=== PATIENT | female | born 1955 | race Caucasian/White ===

== ENCOUNTER 2023-04-11 07:33 | Emergency (ER) | payer OTHER ==
--- OUTSIDE RECORDS SUMMARY | 2023-04-11 07:36 | XMS REPORT | Continuity of Care Document ---
:1955 Author Organization [facility] t Address [address] [place] [address] [place] [id number] Care Team Providers Name Role Phone Jonathan Armijo MD Primary Care Physician Unavailable Uday Armijo V Attending Clinician Unavailable FOG_A_Provider Attending Clinician Unavailable Arya Macedo Attending Clinician [phone] Uday Armijo MD Attending Clinician RADIOLOGY Attending Clinician Unavailable Radiology Attending Clinician Unavailable JUANITO PETERSEN Attending Clinician Unavailable Therapy, Adc Covid Infusion Attending Clinician Unavailable Juanito Petersen MD Attending Clinician Doctor Unassigned, [place] Attending Clinician Unavailable Uday Armijo V Admitting Clinician Unavailable FOG_A_Provider Admitting Clinician Unavailable BETO WONG Admitting Clinician Unavailable Payers Payer Name Policy Type Policy Number Effective Date Expiration Date S yu [employer]ET[employer] (MEDICARE [id number] 2020 REPLACEMENT PPO) 00:00:00 [employer] MEDICARE OUT [id number] 2020 OF NETWORK 00:00:00 Problems Condition Condition Condition Status Onset Resolution Last Treating Co mments Source Name Details Category Date Date Treatment Clinician Date Localized, Localized, Problem Active A zalea 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 00:00: di c itis of itis of 00 Sports the ankle the Ankle Medi kaity and/or And/or e foot Foot Allergies, Adverse Reactions, Alerts Allergy Allergy Status Severity Reaction(s) Onset Inactive Treating Comm ents Source Name Type Date Date Clinician PENICILL DRUG Active Rash 2020-07 Univers IN INGREDI 08-01 ity of 00:00: [place] 00 [facility] Penicill Propensi Active Rash 2020-07 Univer s in ty to 08-01 ity of adverse 00:00: [place] reaction 00 Medical s Branch NO KNOWN Drug Active Univers ALLERGIE Class ity of S [facility] Social History Social Habit Start Date Stop Date Quantity Comments Source Gender identity [facility] Sexual orientation Method [facility] Sex Assigned At [birth year] Met [facility] 00:00:00 00:00:00 Smoking Status Start Date Stop Date Source Tobacco smoking consumption unknown [facility] Medications Ordered Filled Start Stop Current Ordering Indication Dosage Frequency Signature Comments Components Source Medication Medication Date Date Medication? Clinician (SIG) Name Name casirivimab 2020-07- No [id number] 1200mg 1,200 mg, Univers -imdevimab 08-01 Subcutaneo it y of (REGEN-COV 23:00: 21:08 us, ONCE, [place] (EUA)) 00 :00 1 dose, On Medical injection Tue Branch 1,200 mg 06/01/21 at 1800, Routine albuterol albuterol No albuterol [place] sulfate HFA sulfate HFA sulfate Orthope 90 90 HFA 90 dic mcg/actuati mcg/actuati mcg/actuat Sports on aerosol on aerosol ion Med icin inhaler inhaler aerosol e TAKE 2 TAKE 2 inhaler PUFFS BY PUFFS BY TAKE 2 MOUTH EVERY MOUTH EVERY PUFFS BY 4 HOURS 4 HOURS MOUTH NEEDED NEEDED EVERY 4 HOURS NEEDED azithromyci azithromyci No azithromyc [facility] n 250 mg n 250 mg in 250 mg Or thope tablet TAKE tablet TAKE tablet dic 2 TABLETS 2 TABLETS TAKE 2 Spo rts BY MOUTH BY MOUTH TABLETS BY M edicin TODAY, THEN TODAY, THEN MOUTH e TAKE 1 TAKE 1 TODAY, TABLET TABLET THEN TAKE DAILY FOR 4 DAILY FOR 4 1 TABLET DAYS DAYS DAILY FOR 4 DAYS bromphenira bromphenira No bromphenir [facility] mine-pseudo mine-pseudo amine-pseu Orthope ephedrine-D ephedrine-D doephedrin dic M 2 mg-30 M 2 mg-30 e-DM 2 Spo rts mg-10 mg/5 mg-10 mg/5 mg-30 Me dicin mL oral mL oral mg-10 mg/5 e syrup TAKE syrup TAKE mL oral 10 ML BY 10 ML BY syrup TAKE MOUTH EVERY MOUTH EVERY 10 ML BY 4 HOURS 4 HOURS MOUTH NEEDED NEEDED EVERY 4 HOURS NEEDED methylpredn methylpredn No methylpred [place] isolone 4 isolone 4 nisolone 4 Orthope mg tablets mg tablets mg tablets dic in a dose in a dose in a dose Sports pack TAKE 6 pack TAKE 6 pack TAKE Medicin TABLETS ON TABLETS ON 6 TABLETS e DAY 1 DAY 1 ON DAY 1 DIRECTED ON DIRECTED ON PACKAGE AND PACKAGE AND DIRECTED DECREASE BY DECREASE BY ON PACKAGE 1 TAB EACH 1 TAB EACH AND DAY FOR A DAY FOR A DECREASE TOTAL OF 6 TOTAL OF 6 BY 1 TAB DAYS DAYS EACH DAY FOR A TOTAL OF 6 DAYS Suprep Suprep No Suprep [place] Bowel Prep Bowel Prep Bowel Prep Orthope Kit 17.5 Kit 17.5 Kit 17.5 dic gram-3.13 gram-3.13 gram-3.13 Sports gram-1.6 gram-1.6 gram-1.6 Med icin gram oral gram oral gram oral e solution solution solution USE USE USE DIRECTED DIRECTED DIRECTED Symbicort Symbicort No Symbicort [facility] 160 mcg-4.5 160 mcg-4.5 160 O rthope mcg/actuati mcg/actuati mcg-4.5 dic on HFA on HFA mcg/actuat Sport s aerosol aerosol ion HFA Medici n inhaler inhaler aerosol e TAKE 2 TAKE 2 inhaler PUFFS BY PUFFS BY TAKE 2 MOUTH TWICE MOUTH TWICE PUFFS BY A DAY A DAY MOUTH TWICE A DAY albuterol albuterol No albuterol [place] sulfate HFA sulfate HFA sulfate Orthope 90 90 HFA 90 dic mcg/actuati mcg/actuati mcg/actuat Sports on aerosol on aerosol ion Med icin inhaler inhaler aerosol e TAKE 2 TAKE 2 inhaler PUFFS BY PUFFS BY TAKE 2 MOUTH EVERY MOUTH EVERY PUFFS BY 4 HOURS 4 HOURS MOUTH NEEDED NEEDED EVERY 4 HOURS NEEDED azithromyci azithromyci No azithromyc [place] n 250 mg n 250 mg in 250 mg Or thope tablet TAKE tablet TAKE tablet dic 2 TABLETS 2 TABLETS TAKE 2 Spo rts BY MOUTH BY MOUTH TABLETS BY M edicin TODAY, THEN TODAY, THEN MOUTH e TAKE 1 TAKE 1 TODAY, TABLET TABLET THEN TAKE DAILY FOR 4 DAILY FOR 4 1 TABLET DAYS DAYS DAILY FOR 4 DAYS bromphenira bromphenira No bromphenir [facility] mine-pseudo mine-pseudo amine-pseu Orthope ephedrine-D ephedrine-D doephedrin dic M 2 mg-30 M 2 mg-30 e-DM 2 Spo rts mg-10 mg/5 mg-10 mg/5 mg-30 Me dicin mL oral mL oral mg-10 mg/5 e syrup TAKE syrup TAKE mL oral 10 ML BY 10 ML BY syrup TAKE MOUTH EVERY MOUTH EVERY 10 ML BY 4 HOURS 4 HOURS MOUTH NEEDED NEEDED EVERY 4 HOURS NEEDED methylpredn methylpredn No methylpred [place] isolone 4 isolone 4 nisolone 4 Orthope mg tablets mg tablets mg tablets dic in a dose in a dose in a dose Sports pack TAKE 6 pack TAKE 6 pack TAKE Medicin TABLETS ON TABLETS ON 6 TABLETS e DAY 1 DAY 1 ON DAY 1 DIRECTED ON DIRECTED ON PACKAGE AND PACKAGE AND DIRECTED DECREASE BY DECREASE BY ON PACKAGE 1 TAB EACH 1 TAB EACH AND DAY FOR A DAY FOR A DECREASE TOTAL OF 6 TOTAL OF 6 BY 1 TAB DAYS DAYS EACH DAY FOR A TOTAL OF 6 DAYS Suprep Suprep No Suprep [facility] Bowel Prep Bowel Prep Bowel Prep Orthope Kit 17.5 Kit 17.5 Kit 17.5 dic gram-3.13 gram-3.13 gram-3.13 Sports gram-1.6 gram-1.6 gram-1.6 Med icin gram oral gram oral gram oral e solution solution solution USE USE USE DIRECTED DIRECTED DIRECTED Symbicort Symbicort No Symbicort [facility] 160 mcg-4.5 160 mcg-4.5 160 O rthope mcg/actuati mcg/actuati mcg-4.5 dic on HFA on HFA mcg/actuat Sport s aerosol aerosol ion HFA Medici n inhaler inhaler aerosol e TAKE 2 TAKE 2 inhaler PUFFS BY PUFFS BY TAKE 2 MOUTH TWICE MOUTH TWICE PUFFS BY A DAY A DAY MOUTH TWICE A DAY Vital Signs Vital Name Observation Time Observation Value Comments Source Systolic blood 2021-06-01 21:53:00 119 mm[Hg] Univer sity of pressure [facility] [place] [facility] Diastolic blood 2021-06-01 21:53:00 75 mm[Hg] Unive rsity of pressure [facility] [place] [facility] Heart rate 2021-06-01 21:53:00 101 /min [facility] Body temperature 2021-06-01 21:53:00 37.28 [facility] Res[facility] rate 2021-06-01 21:53:00 18 /min [facility] Oxygen saturation in 2021-06-01 21:53:00 94 /min [facility] Arterial blood by [facility] Pulse oximetry [place] Body height 2021-06-01 21:04:00 162.6 cm [facility] Body weight 2021-06-01 21:04:00 66.679 kg [facility] BMI 2021-06-01 21:04:00 25.23 kg/m2 [facility] Procedures Procedure Date / Time Performed Performing Clinician Stephaniec e MRI, ankle, w/o 2022-06-22 00:00:00 [facility] pedic contrast Sports Medicine MRI, ankle, w/o 2022-04-08 00:00:00 [facility] Ortho pedic contrast Sports Medicine US VASCULAR SCREENING 2021-10-27 14:53:22 [facility] HEART SCAN PLUS CT HEART SCAN PLUS W 2021-10-27 13:15:32 [facility] PHYSICIAN ORDER XR CHEST 2 VW 2021-06-07 18:34:04 Beto Wong [place] [facility] [place] [facility] [id number] CONSENT 2021-05-31 05:01:00 Doctor Unassigned, No Unive [facility] Plan of Care Planned Activity Planned Date Details Comments Source Future Scheduled Test 2023-04-07 SHINGLES VACCINES ([facility] 07:35:57 of 2) [code = SHINGLES VACCINES (1 of 2)] Future Scheduled Test 2023-04-07 65+ PNEUMOCOCCAL Me [facility] 07:35:57 VACCINE (1 - PCV) [code = 65+ PNEUMOCOCCAL VACCINE (1 - PCV)] Future Scheduled Test 2023-04-07 INFLUENZA VACCINE [facility] 07:35:57 (#1) [code = INFLUENZA VACCINE (#1)] Future Scheduled Test 2023-04-07 [facility] 07:35:57 malignant neoplasm of colon (procedure) [code = 112402202] Future Scheduled Test 2023-04-07 [facility] 07:35:57 malignant neoplasm of colon (procedure) [code = 349088704] Future Scheduled Test 2023-04-07 [facility] 07:35:57 malignant neoplasm of colon (procedure) [code = 157098980] Future Scheduled Test 2023-04-07 COVID-19 VACCINE (#1) [facility] 07:35:57 [code = COVID-19 VACCINE (#1)] Future Scheduled Test 2023-04-[address] [facility] 07:35:57 (procedure) [code = 673463101] Future Scheduled Test 2023-04-07 [facility] 07:35:57 SCREENING [code = BREAST CANCER SCREENING] Future Scheduled Test 2023-04-07 [facility] 07:35:57 malignant neoplasm of colon (procedure) [code = 548198786] Future Scheduled Test 2023-04-07 [facility] 07:35:57 malignant neoplasm of colon (procedure) [code = 961271185] Future Scheduled Test 2022-07-12 COVID-19 VACCINE (#1) [facility] 07:49:52 [code = COVID-19 VACCINE (#1)] Future Scheduled Test 2022-07-[address] [facility] 07:49:52 (procedure) [code = 541141325] Future Scheduled Test 2022-07-12 [facility] 07:49:52 SCREENING [code = BREAST CANCER SCREENING] Future Scheduled Test 2022-07-[address] [facility] 07:49:52 [code = COLONOSCOPY SCREENING] Future Scheduled Test 2022-07-12 [facility] of 2) [code = SHINGLES VACCINES (1 of 2)] Future Scheduled Test 2022-07-12 65+ PNEUMOCOCCAL [facility] 07:49:52 VACCINE (1 - PCV) [code = 65+ PNEUMOCOCCAL VACCINE (1 - PCV)] Future Scheduled Test 2022-07-12 INFLUENZA VACCINE [facility] 07:49:52 [code = INFLUENZA VACCINE] Instructions [facility] ic Sports Medicine Encounters Start End Encounter Admission Attending Care Care Encounter Source Date/Time Date/Time Type Type Clinicians Facility Department ID 2022-09-22 2022-09-22 Outpatient HENNY Craig [id number] [facility] 12:00:00 12:00:00 Uday 64 [facility] 2022-07-01 2022-07-01 Outpatient FOG_A_Provi AOSM AOSM [id number] [facility] 00:00:00 00:00:00 reggie [id number] Orthop e dic Sports Medicin e 2022-07-01 2022-07-01 Arya Bean AOSM [place] - Ortho [id number] [facility] 00:00:00 00:00:00 Melanie Macedo MD: [id number] FOG_Of[facility] [place] [id number] , Ph. [id number] 2022-06-30 2022-06-30 Outpatient FOG_A_Provi AOSM AOSM [id number] [facility] 00:00:00 00:00:00 reggie [id number] Orthop e dic Sports Medicin e 2022-06-29 2022-06-29 Outpatient FOG_A_Provi AOSM AOSM [id number] [facility] 00:00:00 00:00:00 reggie [id number] Orthop e dic Sports Medicin e 2022-04-08 2022-04-08 Outpatient FOG_A_Provi AOSM AOSM [id number] [facility] 00:00:00 00:00:00 reggie [id number] Orthop e dic Sports Medicin e 2022-04-08 2022-04-08 Outpatient Hellen, AOSM AOSM aacb [id number] 00:00:00 00:00:00 Arya Bean [id number] 2022-04-08 2022-04-08 Arya Bean AOSM [place] - Ortho [id number] [facility] 00:00:00 00:00:00 Melanie Macedo MD: [id number] FOG_[facility] e [id number] , Ph. [id number] 2022-04-07 2022-04-07 Outpatient FOG_A_Provi AOSM AOSM [id number] [facility] 00:00:00 00:00:00 reggie [id number] Orthop e dic Sports Medicin e 2022-04-05 2022-04-05 Outpatient FOG_A_Provi AOSM AOSM [id number] [facility] 00:00:00 00:00:00 reggie [id number] Orthop e dic Sports Medicin e 2022-04-01 2022-04-01 Outpatient FOG_A_Provi AOSM AOSM [id number] [facility] 00:00:00 00:00:00 reggie [id number] Orthop e dic Sports Medicin e 2021-10-27 2021-10-27 [facility] 1.2.840.1 [id number] Methodi 07:52:58 23:59:00 Encounter Uday [id number] 3.430.2.7 Hospit a .3.328503 l .8 2021-10-27 2021-10-27 [facility] 1.2.840.1 [id number] Methodi 07:52:26 23:59:00 Encounter Uday [id number] 3.430.2.7 Hospit a .3.023973 l .8 2021-10-27 2021-10-27 Travel 1.2.840.1 1.2.252.165 [id number] Methodi 00:00:00 00:00:[address] 3.430.2.7 0.2.7.3.698 Ho spita .3.685303 084.8 l .8 2021-10-13 2021-10-13 Travel 1.2.840.1 1.2.851.484 [id number] Methodi 00:00:00 00:00:[address] 3.430.2.7 0.2.7.3.698 Ho spita .3.016873 084.8 l .8 2021-09-30 2021-09-30 Transcribe Zofia, 1.2.840.1 [id number] Methodi 00:00:00 00:00:00 Orders Uday [id number] 3.430.2.7 Hospit a .3.880346 l .8 2021-09-16 2021-09-16 Outpatient FLORIAN Armijo [facility] [id number] [facility] 12:00:00 12:00:00 Uday 45 [facility] 2021-06-07 2021-06-07 Outpatient R RADIOLOGY [facility] [id number] Univers 12:18:01 23:59:00 ity of [facility] 2021-06-07 2021-06-07 Hospital Radiology [facility] 1.2.840.114 [id number] Univers 12:15:00 23:59:00 Encounter TONY 350.1.13.10 it[place] [id number] [facility] 807 Branch 2021-06-01 2021-06-01 Outpatient R SHELLI, [facility] [id number] Univers 16:00:00 16:00:00 JUANITO hkan of [facility] 2021-06-01 2021-06-01 Nurse Therapy, Adc Covid Infusion [facility] 1.2.840.114 [id number] Univers 14:47:23 15:47:23 Visit Juanito Petersen 350.1.13.10 [place] [id number] [facility] 053 Branch 2021-05-31 2021-05-31 Orders Doctor TAN 1.2.840.114 [id number] Univers 00:00:00 00:00:00 Only Unassigned, COREY 350.1.13.10 ity of [place] [facility] 4.2.7.2.686 Xander as [phone] [facility] 009 Branch Results This patient has no known results.
[2023-04-11] MEDS ORDERED: ASPIRIN 81 MG CHEWABLE TABLET ONE (08:00)
[2023-04-11 08:05] LABS: Absolute Lymphocytes (CBC) 2.7 K/uL (0.7-4.9); Hematocrit 44.1 % (36.0-45.0); Lymphocytes % 32.6 % (15.3-44.8); MCV 91.9 fL (80-100); MPV 6.9 fL (7.6-11.3); Platelets 381 thou/uL (152-406)
[2023-04-11 08:08] LABS: Protime INR 0.91
[2023-04-11 08:25] LABS: Albumin 3.9 g/dL (3.4-5.0); Bilirubin Direct 0.1 mg/dL (0-0.2); Bilirubin Indirect, Calculated 0.4 mg/dL (0.2-0.8); Bilirubin Total 0.5 mg/dL (0.2-1.0); Magnesium 2.1 mg/dL (1.6-2.4); Potassium 3.6 mEq/L (3.5-5.1); Protein, Total 7.8 g/dL (6.4-8.2); Troponin High Sensitivity 4.4 pg/mL (<58.9)
--- NOTE | 2023-04-11 08:49 | RAD REPORT ---
EXAM DESCRIPTION: CT - Chest For Pe Angio - 04/11/2023 8:38 am CLINICAL HISTORY: DYSPNEA COMPARISON: No comparisons TECHNIQUE: Dynamically enhanced axial 3 mm thick images of the chest were obtained during administra tion of <100> mL Isovue 370 IV contrast. Coronal and oblique reconstruction images were generated and reviewed. Exam utilizes a protocol for optimal evaluation of pulmonary arterial tree. Maximum intensity projections 3D imaging was utilized All CT scans are performed using dose optimization technique as appropriate and may include automated exposure control or mA/KV adjustment according to patient size. FINDINGS: Chest Wall: Subcentimeter thyroid nodules do not require follow-up. Lungs: Dependent atelectasis. No edema or consolidation identified. No suspicious pulmonary bulla tigist ntified. Pleura: No significant effusions or pneumothorax. Mediastinum/kendrick: No pathologic lymphadenopathy. Pulmonary arteries/Aorta: No filling defect identified. No aortic aneurysm. Heart: No significant pericardial effusion. Normal heart size. Upper abdomen: No acute abnormality. Bones: No acute abnormality. IMPRESSION: Negative for pulmonary embolism. No acute findings within the chest.
--- NOTE | 2023-04-11 10:28 | ER ---
Nurse's Notes [facility] [place] [facility] Name: Myla Bliss Age: 68 yrs Sex: Female : 1955 Arrival Date: 04/11/2023 Time: 07:33 Bed 19 Private MD: Diagnosis: Dyspnea, unspecified Presentation: 04/11 07:41 Chief complaint: Patient states: "SOB that started yesterday while walking my dog. It mb9 went away and then started this morning after drinking my tea. I feel slightly dizzy as well". Coronavirus screen: Vaccine status: Patient reports being unvaccinated. Ebola Screen: No symptoms or risks identified at this time. Initial Sepsis Screen: Does the patient meet any 2 criteria? No. Patient's initial sepsis screen is negative. Does the patient have a suspected source of infection? No. Patient's initial sepsis screen is negative. Risk Assessment: Do you want to hurt yourself or someone else? Patient reports no desire to harm self or others. Onset of symptoms was April 11, 2023. 07:41 Method Of Arrival: Wheelchair 9 07:41 Acuity: JOHN 3 mb9 Triage Assessment: 07:43 General: Appears in no apparent distress. Behavior is calm, cooperative. Pain: Denies mb9 pain. Neuro: Christie Agitation-Sedation Scale (RASS): 0 - Alert and Calm. Neuro: Reports dizziness. Cardiovascular: Denies chest pain. Respiratory: Reports shortness of breath at rest on exertion Airway is patent Respiratory effort is even, unlabored, Respiratory pattern is regular, symmetrical, Onset: The symptoms/episode began/occurred yesterday, the patient has mild shortness of breath. Historical: - Allergies: 07:42 PENICILLINS; mb9 - Home Meds: 07:42 None [Active]; mb9 - PMHx: 07:42 Myocardial infarction; mb9 - PSHx: 07:42 Bilateral hip replacement; mb9 - Immunization history:: Adult Immunizations up to date. - Social history:: Smoking status: Patient denies any tobacco usage or history of. Screenin:44 [facility] ED Fall Risk Assessment (Adult) History of falling in the last 3 months, kc6 including since admission No falls in past 3 months (0 pts) Confusion or Disorientation No (0 pts) Intoxicated or Sedated No (0 pts) Impaired Gait No (0 pts) Mobility Assist Device Used No (0 pt) Altered Elimination No (0 pt) Score/Fall Risk Level 0 - 2 = Low Risk. Abuse screen: Denies threats or abuse. Denies injuries from another. Nutritional screening: No deficits noted. Tuberculosis screening: No symptoms or risk factors identified. Assessment: 07:45 General: Appears in no apparent distress. comfortable, Behavior is calm, cooperative, kc6 appropriate for age. Pain: Denies pain. Neuro: Level of Consciousness is awake, alert, obeys commands, Oriented to person, place, time, situation, Appropriate for age. Cardiovascular: Denies chest pain, Heart tones S1 S2 present Capillary refill < 3 seconds Rhythm is sinus rhythm. Respiratory: Reports shortness of breath at rest on exertion Airway is patent Trachea midline Respiratory effort is even, unlabored, Respiratory pattern is regular, symmetrical, Breath sounds are clear bilaterally. GI: No signs and/or symptoms were reported involving the gastrointestinal system. : No signs and/or symptoms were reported regarding the genitourinary system. EENT: No signs and/or symptoms were reported regarding the EENT system. Derm: No signs and/or symptoms reported regarding the dermatologic system. Skin is intact, is healthy with good turgor, Skin is pink, warm \\T\\ dry. Musculoskeletal: No signs and/or symptoms reported regarding the musculoskeletal system. Circulation, motion, and sensation intact. Capillary refill < 3 seconds, Range of motion: intact in all extremities. 08:24 Reassessment: pt used call light, reported she feels as though her breathing is getting kc6 worse. SPO2 is 98% o RA. pt placed on 2L via NC for comfort. 09:24 Reassessment: Patient appears in no apparent distress at this time. No changes from kc6 previously documented assessment. Patient and/or family updated on plan of care and expected duration. Pain level reassessed. Patient is alert, oriented x 3, equal unlabored respirations, skin warm/dry/pink. Vital Signs: 07:41 BP 171 / 99; Pulse 87; Resp 18; Temp 98.5(O); Pulse Ox 98% on R/A; Weight 74.84 kg; mb9 Height 5 ft. 4 in. ; Pain 0/10; 08:25 BP 151 / 75; Pulse 79; Resp 26 S; Pulse Ox 99% on R/A; kc6 09:37 BP 154 / 83; Pulse 79; Resp 14 S; Pulse Ox 98% on R/A; kc6 07:41 Body Mass Index 28.32 (74.84 kg, 162.56 cm) mb9 07:41 Pain Scale: Adult mb9 ED Course: 07:37 Patient arrived in ED. im 07:37 Jennifer Jones, RN is Primary Nurse. kc6 07:42 Triage completed. mb9 07:42 Arm band placed on. mb9 07:44 Davina Petersen MD is Attending Physician. sp3 07:45 Patient has correct armband on for positive identification. Placed in gown. Bed in low kc6 position. Call light in reach. Side rails up X 1. Adult w/ patient. Client placed on continuous cardiac and pulse oximetry monitoring. NIBP monitoring applied. hoist mechanic on. 07:55 Inserted saline lock: 22 gauge in right antecubital area, using aseptic technique. kc6 ,using aseptic technique. placed by Navya Owens RN Blood collected. 08:40 CT Chest For PE Angio In Process Unspecified. EDMS 10:35 No provider procedures requiring assistance completed. IV discontinued, intact, kc6 bleeding controlled, No redness/swelling at site. Pressure dressing applied. Administered Medications: 07:53 Drug: Aspirin PO Chewable Tablet 324 mg Route: PO; kc6 08:28 Follow up: Response: No adverse reaction kc6 Medication: 10:36 VIS not applicable for this client. kc6 Outcome: 10:27 Discharge ordered by . sp3 10:35 Discharged to home ambulatory, with significant other. kc6 10:35 Condition: improved 10:35 Discharge instructions given to patient, Instructed on discharge instructions, follow up and referral plans. Demonstrated understanding of instructions, follow-up care. 10:37 Patient left the ED. kc6 Signatures: Dispatcher [employer] EDMS Davina Petersen MD MD sp3 Jennifer Jones, RN RN kc6 Nicole Pat RN RN mb9 Adalgisa Loving im
--- NOTE | 2023-04-11 10:28 | EDPHYS ---
Physician Documentation [facility] Name: Myla Bliss Age: 68 yrs Sex: Female : 1955 Arrival Date: 04/11/2023 Time: 07:33 Bed 19 Private MD: ED Physician Davina Petersen HPI: 04/11 08:02 This 68 yrs old Female presents to ER via Wheelchair with complaints of Shortness Of sp3 Breath. 08:02 68-year-old female with history of MD 8 years ago but not on any current medications sp3 and no stent or other intervention was performed back then now presents to the ED with shortness of breath that started yesterday evening while walking her dog. She denies any other associated symptoms including fever, cough, back pain, chest pain, prolonged immobilization, prior DVT or PE, hypercoagulable syndrome history, significant travel, abdominal pain, nausea, vomiting, diarrhea, syncope, near syncope, focal neurological deficit, or any other signs or symptoms on ROS at this time. During her catheterization 8 years ago, she states that her associate professor of library science told her that her arteries were extremely clean and they were not sure why she had elevation of cardiac enzymes. She is currently on no medications at all and does see her PCP Dr. Armijo regularly.. Historical: - Allergies: 07:42 PENICILLINS; mb9 - Home Meds: 07:42 None [Active]; mb9 - PMHx: 07:42 Myocardial infarction; mb9 - PSHx: 07:42 Bilateral hip replacement; mb9 - Immunization history:: Adult Immunizations up to date. - Social history:: Smoking status: Patient denies any tobacco usage or history of. ROS: 08:03 Constitutional: Negative for fever, chills, and weight loss, Eyes: Negative for injury, sp3 pain, redness, and discharge, ENT: Negative for injury, pain, and discharge, Neck: Negative for injury, pain, and swelling, Cardiovascular: Negative for chest pain, palpitations, and edema, Abdomen/GI: Negative for abdominal pain, nausea, vomiting, diarrhea, and constipation, Back: Negative for injury and pain, MS/Extremity: Negative for injury and deformity, Skin: Negative for injury, rash, and discoloration, Neuro: Negative for headache, weakness, numbness, tingling, and seizure, Psych: Negative for depression, anxiety, suicide ideation, homicidal ideation, and hallucinations, Allergy/Immunology: Negative for hives, rash, and allergies, Endocrine: Negative for neck swelling, polydipsia, polyuria, polyphagia, and marked weight changes, Hematologic/Lymphatic: Negative for swollen nodes, abnormal bleeding, and unusual bruising. 08:03 All other systems are negative. Exam: 08:03 Constitutional: This is a well developed, well nourished patient who is awake, alert, sp3 and in no acute distress. Head/Face: Normocephalic, atraumatic. Eyes: Pupils equal round and reactive to light, extra-ocular motions intact. Lids and lashes normal. Conjunctiva and sclera are non-icteric and not injected. Cornea within normal limits. Periorbital areas with no swelling, redness, or edema. ENT: Nares patent. No nasal discharge, no septal abnormalities noted. External auditory canals are clear. Oropharynx with no redness, swelling, or masses, exudates, or evidence of obstruction, uvula midline. Mucous membranes moist. Neck: Trachea midline, no thyromegaly or masses palpated, and no cervical lymphadenopathy. Supple, full range of motion without nuchal rigidity, or vertebral point tenderness. No Meningismus. Chest/axilla: Normal chest wall appearance and motion. Nontender with no deformity. No lesions are appreciated. Cardiovascular: Regular rate and rhythm with a normal S1 and S2. No gallops, murmurs, or rubs. Normal PMI, no JVD. No pulse deficits. Respiratory: Lungs have equal breath sounds bilaterally, clear to auscultation and percussion. No rales, rhonchi or wheezes noted. No increased work of breathing, no retractions or nasal flaring. Abdomen/GI: Soft, non-tender, with normal bowel sounds. No distension or tympany. No guarding or rebound. No evidence of tenderness throughout. Back: No spinal tenderness. No costovertebral tenderness. Full range of motion. Skin: Warm, dry with normal turgor. Normal color with no rashes, no lesions, and no evidence of cellulitis. MS/ Extremity: Pulses equal, no cyanosis. Neurovascular intact. Full, normal range of motion. Neuro: Awake and alert, GCS 15, oriented to person, place, time, and situation. Cranial nerves II-XII grossly intact. Motor strength 5/5 in all extremities. Sensory grossly intact. Cerebellar exam normal. Normal gait. Psych: Awake, alert, with orientation to person, place and time. Behavior, mood, and affect are within normal limits. 08:03 ECG was reviewed by the Attending Physician. EKG demonstrates normal sinus rhythm at 82 bpm with normal intervals, normal QRS, normal axis, normal ST/T-segment's without evidence of acute ischemia. Vital Signs: 07:41 BP 171 / 99; Pulse 87; Resp 18; Temp 98.5(O); Pulse Ox 98% on R/A; Weight 74.84 kg; mb9 Height 5 ft. 4 in. ; Pain 0/10; 08:25 BP 151 / 75; Pulse 79; Resp 26 S; Pulse Ox 99% on R/A; kc6 09:37 BP 154 / 83; Pulse 79; Resp 14 S; Pulse Ox 98% on R/A; kc6 07:41 Body Mass Index 28.32 (74.84 kg, 162.56 cm) mb9 07:41 Pain Scale: Adult mb9 MDM: 07:44 Patient medically screened. sp3 08:04 Data reviewed: vital signs, nurses notes, lab test result(s), EKG, radiologic studies. sp3 ED course: 68-year-old female with 1 day history of shortness of breath dyspnea on exertion. Work-up includes acute coronary syndrome, pulmonary embolism, viral syndrome, pneumonia, CHF new onset, among others. Will obtain laboratory values, EKG which is already been performed, CT chest PE protocol and general observation. Patient is well-appearing with normal vital signs except for blood pressure at 171/99. Pulse oxygenation is at 98% on room air. Disposition pending work-up and patient course with possible repeat troponin and outpatient follow-up versus 23-hour observation and cardiology consultation. Given her normal EKG, we will attempt for outpatient follow-up assuming patient feels better and work-up is negative.. 10:27 ED course: Second troponin is negative. We will safely discharge patient at this time.. sp3 04/11 07:45 Order name: Basic Metabolic Panel; Complete Time: 08:26 sp3 04/11 07:45 Order name: CBC with Diff; Complete Time: 08: sp3 04/11 07:45 Order name: LFT's; Complete Time: 08:26 sp3 04/11 07:45 Order name: Magnesium; Complete Time: 08:26 sp3 04/11 07:45 Order name: NT PRO-BNP; Complete Time: 08:26 sp3 04/11 07:45 Order name: PT-INR; Complete Time: 08:26 sp3 04/11 07:45 Order name: Troponin HS; Complete Time: 08:26 sp3 04/11 09:34 Order name: Troponin High Sensitivity: Draw two hours after first; Complete Time: 10:26 sp3 04/11 07:45 Order name: CT Chest For PE Angio; Complete Time: 09:33 sp3 04/11 07:45 Order name: EKG; Complete Time: 07:46 sp3 04/11 07:45 Order name: Cardiac monitoring; Complete Time: 07:53 sp3 04/11 07:45 Order name: EKG - Nurse/Tech; Complete Time: 07:53 sp3 04/11 07:45 Order name: IV Saline Lock; Complete Time: 07:55 sp3 04/11 07:45 Order name: Labs collected and sent; Complete Time: 07:55 sp3 04/11 07:45 Order name: O2 Per Protocol; Complete Time: 07:46 sp3 04/11 07:45 Order name: O2 Sat Monitoring; Complete Time: 07:46 sp3 Administered Medications: 07:53 Drug: Aspirin PO Chewable Tablet 324 mg Route: PO; kc6 08:28 Follow up: Response: No adverse reaction kc6 Disposition Summary: 04/11/23 10:27 Discharge Ordered Location: Home sp3 Condition: Stable sp3 Diagnosis - Dyspnea, unspecified sp3 Followup: sp3 - With: Private Physician - When: Upon discharge from the Emergency Department - Reason: Continuance of care Discharge Instructions: - Discharge Summary Sheet sp3 - Shortness of Breath, Adult sp3 Forms: - Medication Reconciliation Form sp3 - Thank You Letter sp3 - Antibiotic Education sp3 - Prescription Opioid Use sp3 - Patient Portal Instructions sp3 - Leadership Thank You Letter sp3 Signatures: Dispatcher [employer] Davina Calvert MD MD sp3 Jennifer Jones RN RN kc6 Nicole Pat RN RN mb9
[2023-04-11 10:51] VITALS: TEMP 98.5
[2023-04-11 11:06] VITALS: BP 154/83; O2SAT 98
--- NOTE | 2023-04-12 14:59 | EKG ---
Test Date: 2023-04-11 Test Time: 07:49:15 Dismantler: CARINA MEASUREMENT RESULTS: Intervals: Rate: 82 HI: 140 QRSD: 90 QT: 408 QTc: 476 [place]quist: P: 56 HI: 140 QRS: 60 T: 49 INTERPRETIVE STATEMENTS: Normal sinus rhythm Normal ECG No previous ECG available for comparison Electronically Signed On 04-12-23 14:55:12 CDT by Lavell Dhillon
== END 2023-04-11 10:37 | disposition home or self-care (01) ==
LOC: ER 07:33
DX: R06.00 Dyspnea, unspecified (principal); I25.2 Old myocardial infarction; Z88.0 Allergy status to penicillin
CPT/HCPCS: 93005; 85025; 80048; 36415; 83735; 85610; 80076; 84484 ×2; 83880; 71275; 99284; Q9967